=== PATIENT | female | born 1975 | race Caucasian/White ===

== ENCOUNTER → 2016-07-12 | Day surgery (SDC) | payer OTHER ==
--- NOTE | 2016-07-04 18:46 | GHP ---
[f rep st] PREOP HISTORY AND PHYSICAL Amended report PLANNED PROCEDURE: Suction dilation and curettage. PREOPERATIVE DIAGNOSIS: Incomplete . INDICATIONS: Patient is a 40-year-old 6, para 1-0-4-1, who presented for a new OB visit at the end of May of 2016. She was measuring size less than dates by 12 days. She had a repeat ultrasound done a week later and there was no growth since the previous ultrasound and the pole was measuring 6 weeks 6 days without cardiac activity. Diagnosis of missed was made. The patient was given Cytotec and passed [id number] amount of tissue. She did collect that specimen with Anora at home and it was found to be trisomy 15. The patient presented for a pelvic ultrasound on 08/01 to ensure a complete has happened. The uterus showed a 2.7 x 1.4 x 2.1 cm hyperchromic mass consistent with retained products of conception. 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 Management options were reviewed with the patient including repeat Cytotec and followup with ultrasound versus D and C followed by ultrasound intraoperatively. Management options were reviewed extensively with the patient and patient has planned to proceed with a suction dilation and curettage. Risks and benefits of the procedure have been reviewed with the patient. Patient has been properly consented and will sign consent the day of surgery. MEDICAL HISTORY: Recurrent loss. Patient has had a negative workup for this. MEDICATIONS: vitamins. SURGICAL HISTORY: LASIK eye surgery. ALLERGIES: No known drug allergies. SOCIAL HISTORY: Patient is . She lives with her and their 1 child. She works as a massage therapist. She denies tobacco, alcohol, or drug use. FAMILY MEDICAL HISTORY: Noncontributory. MANAGER BIOSTATISTICS HISTORY: Menarche age 10. Periods every 24 days lasting 4 days. She is a 6, para 1-0-4-1. In 08/2008, she had a spontaneous vaginal delivery at 40 weeks of a male . In 04/2013, she had an 8-week missed AB which was treated with Cytotec. In 10/2013, she had a 5-week spontaneous . In 02/2014, she had a 5-week spontaneous . In 06/2014, she had an 8-week missed . She was given Cytotec. 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 Current was a miscarriage at 6 weeks 6 days. She was treated with Cytotec and had genetic testing done which was trisomy 15. There are retained products of conception at this time. Patient denies any history of any abnormal Pap smears or sexually transmitted diseases. PHYSICAL EXAM: VITAL SIGNS: Stable. GENERAL APPEARANCE: Alert and oriented x3. HEART: Rate is regular. LUNGS: Clear to auscultation bilaterally. ABDOMEN: Soft, nondistended, nontender. EXTREMITIES: Reveal no calf tenderness or edema. PELVIC: Reveals a mobile mid position uterus with no adnexal masses. Pelvic ultrasound was described above. Rh is pending ASSESSMENT AND PLAN: A 40-year-old 6, para 1-0-4-1, with an incomplete . The patient will undergo a suction dilation and curettage. Type and screen should be ordered and RhoGAM will be given if indicated. /[id number]/MODL Add acc#, 07/09/16, vitaly DEJESUS
--- NOTE | 2016-07-10 17:54 | GHP ---
[f rep st] HISTORY AND PHYSICAL The patient is a 40-year-old 6 P1, 0, A4, living 1, who was diagnosed with a missed AB on 06/12/2016. Ultrasound was size less than dates by 12 days, quants were obtained on 06/12/2016. Quant #1 was 44,877 with a progesterone of 20.50. The second quant was on 06/14/2016, 46,866, progesterone was 19.7. Plan of care was follow up with an ultrasound x1 week, consultation with Dr. Lira for plan of care. On 06/21/2016, second ultrasound , #1 fetus, zero cardiac activity, positive yolk sac, positive gestational sac. Patient, again, requested quants. The quant on 06/21/2016 was 34,657 with a progesterone of 15.6. Cytotec regimen Patient request for plan of care also requesting anora testing. On 06/24/2016 positive results from the Cytotec, and patient was told plan of care should be followup with an ultrasound in 1 week. On 06/27/2016 patient brought in the Anora. Patient was still cramping, was told that we needed to follow up with an ultrasound on 07/02/2016 for retained products of conception. On 07/02/2016 retained products were noted. A possible arcuate uterus was noted on the ultrasound as well. Patient at that time was thinking about whether or not she wanted to do Cytotec or a D and C. On 07/04/2016 patient was called with the Anora results. Patient continuing to cramp even after other tissue passed, again recommended a repeat ultrasound. On that repeat ultrasound on 07/08/2016 retained products of conception, D and C was again suggested and scheduled at patient's request. PAST MEDICAL HISTORY: Per patient is benign. PAST SURGICAL HISTORY: Lasik surgery GYNECOLOGICAL HISTORY: Previous OCP use and Depo-Provera use. No abnormal Paps. FAMILY HISTORY: Noncontributory. LABS: Patient is A positive per her. HISTORY: First in 08/2008 was a male at 2900 g, 40 weeks, 5 hours of labor, and a vaginal delivery. In 04/2013, 8 weeks MAB that was resolved with Cytotec. In 10/2013, a 5 week that was a spontaneous AB. In 02/2014, a 5 week spontaneous AB, in 06/2014, 8 week MAB resolved through Cytotec, did genetic testing and this was found to be positive for trisomy 16, and in 06/2016, an 8 week MAB with Cytotec and no resolution, progressing to this D and C on 07/12/2016. Patient did the Anora, which was positive for trisomy 15. In 2014 had recurrent miscarriage workup, all was negative. TSH, T4, hemoglobin A1c, anticardiolipin, lupus anticoagulant, beta 2 glycoprotein antibodies and antinuclear antibody screen were all negative. Other history, patient was also AMA greater than 40 years old. EXAM: Patient on exam in the office previously awake, alert and oriented x3, lungs were clear bilaterally. Bowel sounds were positive in all 4 quadrants. DTRs were 1+ bilaterally. Patient has continued to complain of cramping after Cytotec with this and two ultrasounds. ASSESSMENT: Incomplete Ab with RPOCs after cytotec, with continued cramping. Fu US confirmed RPOC PLAN OF CARE: Proceed to D and C on 07/12/2016. Discussed risks, benefits and alternatives with the patient. The patient is aware to be n.p.o. Discussed again the risks, benefits, and alternatives, and n.p.o. on 07/10/2016. /[id number]/MODL MTDD
[~2016-07-12] MED LIST: DEXAMETHASONE 4 MG/ML VIAL ONE; DOXYCYCLINE HYCLATE 100 MG CAP/TAB PO ONE; KETOROLAC 30 MG/1 ML SDV ONE; LR 1,000 ML IV SCH; MIDAZOLAM 2 MG/2 ML VIAL IVP ONE; ONDANSETRON 4 MG/2 ML VIAL ONE; PROPOFOL/EMULSION 500 MG/50 ML BOTTLE IV ONE; fentaNYL 100 MCG/2 ML INJ ONE
--- NOTE | 2016-07-12 13:04 | GOP ---
[f rep st] OPERATIVE REPORT DATE OF OPERATION: 07/12/2016 SURGEON: Carla Jacobsen MD ANESTHESIA: Laryngeal mask anesthesia. ANESTHESIOLOGIST: Ellis Emery MD PREOPERATIVE DIAGNOSIS: Incomplete . POSTOPERATIVE DIAGNOSIS: Incomplete . PROCEDURE PERFORMED: Dilation and curettage. FINDINGS: INDICATIONS: The patient is a 40-year-old, G6, P1, A4 who was diagnosed with a missed AB in May 23. The patient wanted to attempt Cytotec to achieve a spontaneous miscarriage. She took the Cyto ketty and passed a large amount of tissue. Testing was performed on this with Anora and was found to be trisomy 15. The patient continued to have cramping and the patient had a followup ultrasound rev ealing persistent retained products of 7.2 cm x 2 cm. The patient was advised of options of repeati ng the Cytotec versus proceeding with D and C, and wanted to proceed with surgical definitive manage ment. The patient has been counseled about the risks and benefits and a consent form was signed. DESCRIPTION OF PROCEDURE: The patient was taken to the operating room where, following satisfactory laryngeal mask anesthesia, the patient was placed in lithotomy position appropriate for a vaginal p rocedure. The patient had urinated prior to coming to the operating room. The patient had taken an oral dose of antibiotics preceding the surgery. The patient's perineum and vagina were prepped and the patient draped in usual sterile manner for vaginal procedures. She had SCDs on her lower extre mities for DVT prophylaxis. A sterile speculum was placed vaginally and an atraumatic grasper was p laced on the anterior lip of the cervix. Gentle traction was applied on the cervix. The cervix was easily dilated up to a number 8.5 Hegar dilator. A number 8 tip was used on the suction machine, a nd 2 passes with the suction were performed with a moderate amount of tissue obtained. Following th is, sharp curettage was performed with a small curette and there was good uterine cry felt throughou t the cavity. One final pass was made with the suction tip and there was no additional tissue obtai aakash with a minimal amount of bleeding. Ultrasound was performed and there was an empty endometrial stripe in the uterus. There was minimal bleeding from the cervix. The atraumatic grasper was remov ed. The patient was cleaned off and taken out of position, and then was taken to the recovery room in stable condition. The estimated blood loss was 25 cc. The specimens of the retained products of conception were sent to Pathology. There were no complications. /[id number]/MODL
== END | disposition home or self-care (01) ==
LOC: FOBOP 06:05
PROVIDERS: ATTEND Obstetrics & Gynecology
PROC: 10D17ZZ Extraction of Products of Conception, Retained, Via Natural or Artificial Opening (ICD-10-PCS; principal; 2016-07-12)
DX: O03.4 Incomplete spontaneous abortion without complication (principal)
CPT/HCPCS: J1100; J1885; J2250; J2405; J2704; J3010

== ENCOUNTER → 2018-03-23 | Outpatient (CLI) | payer OTHER | LOC: FIMAGING 09:41 | PROVIDERS: ATTEND Internal Medicine | DX: Z12.31 Encounter for screening mammogram for malignant neoplasm of breast (principal); R92.2 Inconclusive mammogram ==

== ENCOUNTER → 2018-06-03 | Outpatient (CLI) | payer OTHER | LOC: FIMAGING 12:20 | PROVIDERS: ATTEND Internal Medicine | DX: R92.8 Other abnormal and inconclusive findings on diagnostic imaging of breast (principal) ==